=== PATIENT | female | born 1950 | race Caucasian/White ===

== ENCOUNTER 2018-02-18 03:31 | Inpatient (IN) | payer MEDICARE, OTHER ==
[~2018-02-18] VITALS: Ht 165.1 cm; Wt 100.7 kg
[2018-02-18] VITALS (24 sets, daily range): BP systolic 114–181; BP diastolic 49–122
[2018-02-18] MEDS ORDERED: CYMBALTA (03:36)
[2018-02-18] MEDS ORDERED: LYRICA 50 MG50 MG PO (03:58)
[2018-02-18] MEDS ORDERED: LORAZEPAM 0.50.5 M1 PO (03:58)
[2018-02-18] MEDS ORDERED: MIRAPEX1 MG PO (03:58)
[2018-02-18] MEDS ORDERED: PROTONIX40 M2 PO (03:59)
[2018-02-18] MEDS ORDERED: LEVEMIR100 UNIT/1 SUBQ (03:59)
[2018-02-18] MEDS ORDERED: CYMBALTA60 MG PO (03:59)
[2018-02-18] MEDS ORDERED: SINEMET 25-1001 EAC1 PO (04:00)
[2018-02-18] MEDS ORDERED: BACTRIM DS TAB1 EACH (04:00)
[2018-02-18] MEDS ORDERED: AMBIEN 5 MG TABL5 M1 PO (04:00)
[2018-02-18] MEDS ORDERED: NOVOLOG100 UNIT/1 SUBQ (04:01)
[2018-02-18 04:13] LABS: ABSOLUTE BASOPHILS 0.1 thou/uL (0.0-0.2); ABSOLUTE EOSINOPHILS 0.1 thou/uL (0.0-0.7); ABSOLUTE LYMPHOCYTES 3.7 thou/uL (0.8-5.3); ABSOLUTE MONOCYTES 0.9 thou/uL (0.0-1.2); BASOPHILS 1.1 %; EOSINOPHILS 1.2 %; HEMOGLOBIN 13.8 gm/dL (12.0-15.0); LYMPHOCYTES 31.2 %; MCH 29.8 pg (26.0-34.0); MCV 90.4 fL (80.0-100.0); MONOCYTES 7.7 %; MPV 8.2 fl. (7.2-11.1); NUCLEATED RBCS 0 /100WBC; PLATELET COUNT* 327 thou/uL (150-400); POLYS 58.8 %; RBC 4.64 mil/uL (4.20-5.00); RDW-CV 13.9 % (10.5-14.5)
[2018-02-18 04:18] LABS: ANION GAP 14 mmol/L (7-16); BUN 22 mg/dL (7-18); CALCIUM 9.2 mg/dL (8.5-10.1); CHLORIDE 95 mmol/L (98-107); CO2 22 mmol/L (21-32); CREATININE 1.2 mg/dL (0.6-1.3); GLUCOSE 444 mg/dL (70-99); POTASSIUM 4.3 mmol/L (3.5-5.1); SODIUM 131 mmol/L (136-145)
[2018-02-18 04:27] LABS: ALBUMIN 3.1 g/dL (3.4-5.0); ALKALINE PHOSPHATASE 86 U/L (46-116); LIPASE 204 U/L (73-393); NT-PRO BRAIN NAT PEPTIDE 108 pg/mL (<300); SGOT 28 U/L (15-37); SGPT 16 U/L (30-65); TOTAL BILIRUBIN 0.3 mg/dL (<0.1-1.0); TOTAL PROTEIN 8.1 g/dL (6.4-8.2); TROPONIN-I LEVEL <0.06 ng/mL (<0.06)
[2018-02-18 06:02] LABS: URINE BILIRUBIN NEGATIVE (Negative); URINE BLOOD NEGATIVE (Negative); URINE CLARITY CLEAR; URINE COLOR YELLOW; URINE GLUCOSE-RANDOM 3+ (Negative); URINE KETONES NEGATIVE (Negative); URINE LEUKOCYTES-REFLEX NEGATIVE (Negative); URINE NITRITE-REFLEX NEGATIVE (Negative); URINE PROTEIN NEGATIVE (Negative); URINE UROBILINOGEN 0.2 E.U./dl (0.2-1.0)
[2018-02-18] MEDS ORDERED: AMBIEN CR12.5 MG PO (06:57)
[2018-02-18 07:56] LABS: CHOLESTEROL 254 mg/dL (<200); HDL CHOLESTEROL 33 mg/dL (>40); TC:HDL 7.7 Ratio (Not establshd); TRIGLYCERIDE 623 mg/dL (<150); VLDL 125 mg/dL (<40)
[2018-02-18 08:10] LABS: LDL CHOLESTEROL ND mg/dL (<100); SERUM ASSESSMENT Slight Lipemia
--- NOTE | 2018-02-18 14:28 | EKG ---
[place] [address] ELECTROCARDIOGRAM REPORT Name: ABHI SHULTZ Room: [place] [address] ADM IN [facility].#: [id number] Admission: 02/18/18 Attend Phys: Annette Delvalle MD Discharge: Date of : 52 Report #: [id number] THIS REPORT FOR: //name// [facility] ED Test Date: 2018-02-18 Test Time: 03:36:46 Pat Name: ABHI SHULTZ Department: Room: [facility] Gender: F Java Websphere Developer: LETY : 1950 Requested By: Rosa William Order Number: [id number] MD: Jose A Corona Measurements Intervals [place] Rate: 103 P: 43 SC: 173 QRS: -10 QRSD: 85 T: 19 QT: 353 QTc: 462 Interpretive Statements Sinus tachycardia Probable left atrial enlargement Inferior infarct, old consider old anterior infarction Baseline wander in lead(s) I No previous ECG available for comparison Electronically Signed On 02-18-2018 14:28:10 SURFACE LOGGING SYSTEMS LOGGER by Jose A Corona [email or web address] <ELECTRONICALLY SIGNED> By: Jose A Corona MD, [facility] 02/18/18 1428 0336 0336 Jose A Corona MD, [facility] /EPI
--- NOTE | 2018-02-18 14:28 | EKG ---
[place] [address] ELECTROCARDIOGRAM REPORT Name: ABHI SHULTZ Room: [place] [address] ADM IN [facility].#: [id number] Admission: 02/18/18 Attend Phys: Annette Delvalle MD Discharge: Date of : 52 Report #: [id number] THIS REPORT FOR: //name// [facility] ED Test Date: 2018-02-18 Test Time: 05:09:13 Pat Name: ABHI SHULTZ Department: Room: [facility] Gender: F Film Composer: HAILEY : 1950 Requested By: Rosa William Order Number: [id number] MD: Jose A Corona Measurements Intervals [place] Rate: 95 P: 24 MN: 161 QRS: -14 QRSD: 93 T: 39 QT: 377 QTc: 474 Interpretive Statements Sinus rhythm Inferior infarct, old Anterior infarct, old Baseline wander in lead(s) V1 Electronically Signed On 02-18-2018 14:28:29 HAZMAT CDL DRIVER by Jose A Corona [email or web address] <ELECTRONICALLY SIGNED> By: Jose A Corona MD, [facility] 02/18/18 1428 0509 0509 Jose A Corona MD, [facility] /EPI
--- NOTE | 2018-02-18 18:15 | EKG ---
[place] [address] ELECTROCARDIOGRAM REPORT Name: ABHI SHULTZ Room: [place] [address] ADM IN .R.#: [id number] Admission: 02/18/18 Attend Phys: Annette Delvalle MD Discharge: Date of : 52 Report #: [id number] THIS REPORT FOR: //name// [facility] Test Date: 2018-02-18 Test Time: 16:37:30 Pat Name: ABHI SHULTZ Department: Room: [place] [address] Gender: F Project Construction Assistant Manager: : 1950 Requested By: Jose A Corona Order Number: [id number] Reading MD: Jose A Corona Measurements Intervals [place] Rate: 83 P: 25 DC: 181 QRS: 5 QRSD: 85 T: 107 QT: 393 QTc: 462 Interpretive Statements Sinus rhythm Anterior infarct, age indeterminate Compared to ECG 02/18/2018 05:09:13 t wave changes noted Electronically Signed On 02-18-2018 18:14:59 CREDIT PROCESSOR by Jose A Corona [email or web address] <ELECTRONICALLY SIGNED> By: Jose A Corona MD, [facility] 02/18/184 163 36 Jose A Corona MD, [facility] /EPI
[2018-02-19] VITALS: BP 112/67
[2018-02-19 02:08] LABS: GLYCOHEMOGLOBIN (HGB A1C) 11.5 % (4.8-5.6)
[2018-02-19 04:00] VITALS: BP 120/61
[2018-02-19 04:43] LABS: POC CA IONIZED 4.7 mg/dL (4.5-5.3); POC CREATININE 0.9 mg/dL (0.6-1.3); POC HEMOGLOBIN 14.6 g/dL (12.0-17.0); POC POTASSIUM 4.5 mmol/L (3.5-4.9)
[2018-02-19 04:55] LABS: HEMATOCRIT 37.3 % (37.0-47.0); HEMOGLOBIN 12.3 gm/dL (12.0-15.0); MCH 29.7 pg (26.0-34.0); MCV 89.9 fL (80.0-100.0); MPV 7.8 fl. (7.2-11.1); RBC 4.15 mil/uL (4.20-5.00); RDW-CV 14.1 % (10.5-14.5); WBC 7.3 thou/uL (4.0-11.0)
[2018-02-19 05:14] LABS: ALBUMIN 2.4 g/dL (3.4-5.0); CALCIUM 8.3 mg/dL (8.5-10.1); CREATININE 0.9 mg/dL (0.6-1.3); MAGNESIUM 1.7 mg/dL (1.8-2.4); POTASSIUM 4.3 mmol/L (3.5-5.1); TOTAL BILIRUBIN 0.2 mg/dL (<0.1-1.0); TOTAL PROTEIN 6.7 g/dL (6.4-8.2)
[2018-02-19 05:16] LABS: TROPONIN-I LEVEL 15.72 ng/mL (<0.06)
[2018-02-19 08:00] VITALS: BP 135/63
[2018-02-19 12:00] VITALS: BP 121/63
[2018-02-19 16:00] VITALS: BP 129/70
[2018-02-19 19:35] VITALS: BP 142/71
[2018-02-20] VITALS: BP 107/63
[2018-02-20 04:00] VITALS: BP 101/61
[2018-02-20 08:00] VITALS: BP 128/61
[2018-02-20 12:00] VITALS: BP 116/67
[2018-02-20 16:00] VITALS: BP 126/66
[2018-02-20 19:20] VITALS: BP 107/48
[2018-02-21] VITALS: BP 139/76
[2018-02-21 04:00] VITALS: BP 109/56
[2018-02-21 08:45] VITALS: BP 134/68
--- NOTE | 2018-02-21 11:35 | EKG ---
[place] [address] ELECTROCARDIOGRAM REPORT Name: ABHI SHULTZ Room: [address] ADM IN .R.#: [id number] Admission: 02/18/18 Attend Phys: Annette Delvalle MD Discharge: Date of : 52 Report #: [id number] THIS REPORT FOR: //name// [facility] Test Date: 2018-02-19 Test Time: 14:57:59 Pat Name: ABHI SHULTZ Department: Room: [facility] Gender: F Photography Instructor: : 1950 Requested By: Jose A Corona Order Number: [id number] Reading MD: Rigoberto Feliciano Measurements Intervals [place] Rate: 92 P: 18 MN: 182 QRS: 4 QRSD: 93 T: 98 QT: 361 QTc: 447 Interpretive Statements Sinus rhythm Low voltage, precordial leads Nonspecific T abnrm, anterolateral leads Compared to ECG 02/18/2018 16:37:30 Low QRS voltage now present Myocardial infarct finding no longer present Electronically Signed On 02-21-2018 11:34:47 SUPERVISOR SAWING AND ASSEMBLY by Rigoberto Feliciano [email or web address] <ELECTRONICALLY SIGNED> By: Rigoberto Feliciano MD, [facility]ACC 02/21/18 1134 1457 1457 Rigoberto Feliciano MD, FAC /EPI
[2018-02-21 12:00] VITALS: BP 133/72
[2018-02-21 16:00] VITALS: BP 132/67
[2018-02-21 19:20] VITALS: BP 132/69
[2018-02-22] VITALS: BP 119/54
[2018-02-22 05:11] VITALS: BP 113/52
[2018-02-22 08:50] VITALS: BP 135/76
[2018-02-22 11:51] LABS: CALCIUM 8.6 mg/dL (8.5-10.1); POTASSIUM 4.3 mmol/L (3.5-5.1)
[2018-02-22 12:00] VITALS: BP 122/67
[2018-02-22 16:00] VITALS: BP 137/66
[2018-02-22 19:30] VITALS: BP 124/73
[2018-02-23] VITALS (15 sets, daily range): BP systolic 101–160; BP diastolic 53–106
--- NOTE | 2018-02-23 12:06 | CARD ---
[address] [address] CARDIAC CATH REPORT Name: ABHI SHULTZ Room: [address] IN [facility]#: [id number] Admission: 02/18/18 Attend Phys: Annette Delvalle MD Discharge: Date of : 51 Report #: [id number] THIS REPORT FOR: //name// APPROVED REPORT Study performed: 02/18/2018 13:43:13 Patient Details Patient Status: In-Patient Room #: The patient is a 67 year-old female Event Personnel Jose A Corona Swahili Teacher, Jyoti Mata RN Brickmason Helper, [place] (Mikala) Adolfo Clay Tina RN Brickmason Helper, Magi Jacobs Monitor, Carolin Fuller Monitor, Apryl Levy RN pan puller Performed JADEN Place w/wo Plasty Single LAD [id number] , Left Heart Catheterization Indication Non-STEMI , Chest pain Risk Factors Hypertension, Diabetes Admission/Lab Medications/Medications given during procedure Glycoprotein IllbIlla Inhibitors, Heparin Unfract., Plavix PO 600 mg, Heparin IV 2000 units, Aggrastat IV 9.8 mcg per min, Heparin IV 4900 units Procedure Narrative The patient was brought electively to the Cardiac Catheterization Laboratory and was prepped and draped in a sterile manner. The right wrist was infiltrated with 2% Lidocaine subcutaneous anesthesia. A Slender [place] sheath was inserted into the right radial artery. Coronary angiography was performed using coronary diagnostic catheters. The right coronary system was accessed and visualized with a JR4 5fr catheter. The left coronary system was accessed and visualized with a JL 3.5 5fr catheter. The left ventricle was accessed and visualized with a Angled PIG 5Fr catheter. Left ventricular/Aortic Valve gradient assessed via catheter pullback. Left ventriculogram was performed in [place] [address] CARDIAC CATH REPORT Name: ABHI SHULTZ Room: [address] IN ..#: [id number] Admission: 02/18/18 Attend Phys: Annette Delvalle MD Discharge: Date of : 51 Report #: [id number] was deployed with a 6 Fr Vasc-Band Reg 24cm. The patient tolerated the procedure well and there were no complications associated with the procedure. There was no hematoma. Intraoperative Conscious Sedation Sedation start time: 1447 Case end Time: 1554 Fentanyl 50 mcg Fluoro Time: 11.3 minutes Dose: 2259.36 mGy Contrast Type and Amount: Visipaque 210 ml Coronary Angiography The patient's coronary anatomy is right dominant. Diagnostic Cath Left Main 50% distal stenosis LAD 50% ostial, 90% mid, and 100% distally occluded with thrombus Circumflex 70% ostial stenosis OM3 40% proximal stenosis Right Coronary 60% proximal stenosis Ramus 0% stenosis Left Ventriculography The left ventricular ejection fraction is estimated to be 45-50%. Left ventricular wall motion abnormalities are present. There is no mitral insufficiency. mild distal anteroapical hypokinesis Hemodynamics The aortic pressure is 106/64 mmHg with a mean of 83 mmHg. The left ventricular pressure is 127/20 mmHg with a mean of mmHg. The left ventricular end diastolic pressure is 25 mmHg. There was no gradient across the aortic valve upon pullback. Pullback from the left ventricle to the aorta revealed no gradient across the aortic valve. Because of tortuous aorta, glidewire was required to cross the aortic valve with diagnostic right catheter which was used to perform hand injection of left ventriculogram. PCI Technique Lesion Anticoagulation was achieved with Heparin. iv aggrastat given Percutaneous coronary intervention was performed on the mid left anterior descending artery segment---. The lesion stenosis prior to intervention was 90% with PROSPER 0 flow. A 6FR XB 3.5 100CM Guide Catheter was used to engage the lm ostium. A IG: [facility] 190[place] [address] CARDIAC CATH REPORT Name: ABHI SHULTZ Room: [address] IN ..#: [id number] Admission: 02/18/18 Attend Phys: Annette Delvalle MD Discharge: Date of : 51 Report #: [id number] Interventional Guidewire was used to cross the lesion. BALLOON DILATION A Balloon catheter Trek RX 2.5 X 8 was inserted and inflated up to 12.00atm for 6seconds. Repeat angiography revealed the following post-dilatation results: 80% stenosis. STENT DEPLOYMENT A drug-eluting stent Xience Etelvina 2.08N11yr was inserted and inflated up to 9atm for 12seconds. Repeat angiography revealed the following post-stent deployment results: 0% stenosis. Final angiography reveals 0 % stenosis with PROSPER 3 flow. STENT DEPLOYMENT A stent was inserted and inflated up to 7.00atm for 6seconds. PCI Technique Lesion 2 Percutaneous Coronary Intervention was performed on the distal left anterior descending artery segment. Percutaneous coronary intervention was performed on the distal left anterior descending artery segment. The lesion stenosis prior to intervention was 100% with PROSPER 0 flow. A xb3.5 Guide Catheter was used to engage the lm ostium. A bmw Interventional Guidewire was used to cross the lesion. Balloon Dilation A Balloon catheter 2.5 x 8 mm was inserted and inflated up to 8atm for 19seconds. Repeat angiography revealed the following post-dilatation results: 80% stenosis. Stent Deployment A drug-eluting stent Xience Etelvina 2.56R00cv was inserted and inflated up to 10.00atm for 7seconds. Repeat angiography revealed the following post-stent deployment results: 80% stenosis between the stents in the mid and distal lad. 2 additional stents were placed in the mid lad between the 2 initially placed stents which was required to cover the area between the mid and distal area of stenosis Final angiography reveals 0 % stenosis with PROSPER 3 flow. STENT DEPLOYMENT A drug-eluting stent Xience Etelvina 2.5X12mm was inserted and inflated up to 14.00atm for 27seconds. Additional Inflation: 12.00atm for 6seconds. [address] [address] CARDIAC CATH REPORT Name: ABHI SHULTZ Room: [address] IN [place]#: [id number] Admission: 02/18/18 Attend Phys: Annette Delvalle MD Discharge: Date of : 51 Report #: [id number] PCI Technique Lesion 3 Percutaneous Coronary Intervention was performed on the mid left anterior descending artery segment. Stent Deployment A drug-eluting stent Xience Etelvina 2.5X15mm was inserted and inflated up to 14atm for 27seconds. Additional Inflation: 11atm for 7seconds. Additional Inflation: 16atm for 13seconds. Conclusion 1. 50% distal left main stenosis 2. 70% ostial circumflex stenosis 3. 60% proximal rca stenosis 4. 50% ostial, 90% mid, and complete occlusion of the distal lad with thrombus 5. following placement of 4 drug eluting stents in the mid and distal lad, there was no residual stenosis 5. EF 45-50% Recommendations Cardiac Rehabilitation Referral Aggressive Medical Therapy Medications Administered Clopidogrel <ELECTRONICALLY SIGNED> By: Jose A Corona MD, FAC 02/23/18 1206 1206Damary Corona MD, FACC /INF
--- NOTE | 2018-02-23 13:08 | CON ---
[address] [address] CONSULTATION Name: ABHI SHULTZ Room: [address] IN .R.#: [id number] Admission: 02/18/18 Attend Phys: Annette Delvalle MD Discharge: Date of : 51 Report #: [id number] THIS REPORT FOR: //name// CC: MAGDALENO physician/PCP Annette Delvalle DATE OF SERVICE: 02/18/2018 TYPE OF REPORT: Cardiology consultation. HISTORY OF PRESENT ILLNESS: The patient is a 67-year-old white female diabetic who I was asked to see in the hospital today after she complained of chest pain. No old records are available. The patient and her are actually from [place], [place]. They were staying in a mobile home nearby. The patient is not very active because of neuropathy. She notes few weeks ago, she had a brief episode of chest pain. She went to bed last night, awakened at 3:00 this morning with a pressure in the chest, went into arms. She became diaphoretic and short of breath. It was a steady discomfort. Her brought her to the Emergency Room. She was admitted for further evaluation. She is noted to have an abnormal troponin. I was asked to see her for further evaluation and treatment. She denies a recent cough. The pain was worse with deep breath. She has had no blood in stool. She denied recent trauma to her chest. She does become short of breath with exertion and has noticed an irregular heartbeat, but no syncope. PAST MEDICAL HISTORY: She had previous tonsillectomy, hemicolectomy for colon cancer and had chemotherapy back in 1990. She has had previous cholecystectomy. She recently developed a sore on the bottom of her foot and has been going to the wound clinic in [place]. She has a history of diabetes, borderline hypertension and hyperlipidemia. MEDICATIONS: Consists of the Lyrica, Ativan, Mirapex, Cymbalta, Protonix, insulin, Sinemet and Ambien. ALLERGIES: She in the past cannot tolerate STATIN DRUGS, which made her muscles ache. FAMILY HISTORY: Her mother had COPD. SOCIAL HISTORY: She is . 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 No smoking or alcohol abuse. REVIEW OF SYSTEMS: She has had no history of stroke, had asthma in the past. No history of peptic ulcer disease. She has been told she had an enlarged liver in the past. No kidney disease. She has a history of anxiety disorder and saw [place] [address] CONSULTATION Name: ABHI SHULTZ Room: [address]#: [id number] Admission: 02/18/18 Attend Phys: Annette Delvalle MD Discharge: Date of : 51 Report #: [id number] PHYSICAL EXAMINATION: GENERAL: Revealed a middle-aged female lying in bed. She appeared in mild distress. VITAL SIGNS: She had a blood pressure of 120/70, pulse is 80 and she is afebrile. HEENT: She is anicteric. Conjunctivae pink. Mucous membranes moist. NECK: Veins nondistended. No carotid bruits. Neck supple. CHEST: Clear to auscultation. NECK: Supple. CARDIOVASCULAR: Regular rate without murmur. ABDOMEN: Soft and nontender. EXTREMITIES: Had no edema. Left dorsalis pedis pulse 2+, right cannot be palpated as her foot is in a boot. RADIOLOGICAL DATA: Her ECG shows a sinus rhythm, no ST or T-wave change. Workup in the Emergency Room, she had portable chest x-ray this morning that showed normal heart size and minimal atelectasis. CT scan of the chest done in the Emergency Room with contrast showed no aortic dissection. There was no pulmonary embolus. LABORATORY DATA: She had lab work: Sodium 131, creatinine 1.2 and glucose 444. Her initial troponin less than 0.06 and currently is 3.87. Cholesterol 254, triglycerides 623 and HDL 33. TSH 2.1. White blood cell count 12.0 and hemoglobin 13.8. Urinalysis negative for protein and negative for leukocytes. IMPRESSION AND RECOMMENDATIONS: 1. Ysq-BS-pigqepybb myocardial infarction. Recommend cardiac catheterization. 2. Diabetes. 3. Hypertension. 4. History of colon cancer. 5. History of neuropathy. 6. Chronic ulcer on her foot. 7. Hyperlipidemia. The patient cannot tolerate statin drugs. <ELECTRONICALLY SIGNED> By: Jose A Corona MD, FACC 02/23/18 1308 1412 2049Damary Corona MD, FACC /nt
--- NOTE | 2018-02-23 16:40 | EKG ---
[place] [address] ELECTROCARDIOGRAM REPORT Name: ABIH SHULTZ Room: [address] ADM IN M.R.#: [id number] Admission: 02/18/18 Attend Phys: Annette Delvalle MD Discharge: Date of : 51 Report #: [id number] THIS REPORT FOR: //name// [facility] Test Date: 2018-02-23 Test Time: 14:00:33 Pat Name: ABHI SHULTZ Department: Room: [address] Gender: F Marketing Sales Representative: ROCKY : 1950 Requested By: Savage Smith Order Number: [id number] Lucinda MD: Savage Smith Measurements Intervals [place] Rate: 74 P: 42 [place]: 183 QRS: 25 QRSD: 99 T: 60 QT: 435 QTc: 483 Interpretive Statements Sinus rhythm Multiple ventricular premature complexes Borderline low voltage, extremity leads Compared to ECG 02/19/2018 14:57:59 Ventricular premature complex(es) now present Electronically Signed On 02-23-2018 16:40:24 SENIOR SCIENCE CONSULTANT by Savage Smith [email or web address] <ELECTRONICALLY SIGNED> By: Savage Smith MD, FACC 02/23/18 1640 1400 1400 Savage Smith MD, [facility] /EPI
[2018-02-24] VITALS: BP 131/73; BP 132/64
[2018-02-24 04:00] VITALS: BP 112/61; BP 122/76
[2018-02-24 05:32] LABS: HEMATOCRIT 35.7 % (37.0-47.0); HEMOGLOBIN 11.8 gm/dL (12.0-15.0); MCH 29.9 pg (26.0-34.0); MCV 90.6 fL (80.0-100.0); MPV 7.8 fl. (7.2-11.1); RBC 3.93 mil/uL (4.20-5.00); RDW-CV 14.5 % (10.5-14.5); WBC 6.8 thou/uL (4.0-11.0)
[2018-02-24 05:59] LABS: ALBUMIN 2.4 g/dL (3.4-5.0); CALCIUM 8.6 mg/dL (8.5-10.1); POTASSIUM 4.3 mmol/L (3.5-5.1); TOTAL BILIRUBIN 0.2 mg/dL (<0.1-1.0); TOTAL PROTEIN 6.5 g/dL (6.4-8.2)
[2018-02-24 06:02] LABS: TROPONIN-I LEVEL 1.62 ng/mL (<0.06)
[2018-02-24 08:44] VITALS: BP 123/73
[2018-02-24 12:00] VITALS: BP 128/74
[2018-02-24 12:54] VITALS: BP 123/73
[2018-02-24] MEDS ORDERED: CARVEDILOL3.125 MG PO (14:02)
[2018-02-24] MEDS ORDERED: NITROGLYCERIN0.4 MG SUBLING (14:02)
[2018-02-24] MEDS ORDERED: EFFIENT10 MG PO (14:02)
[2018-02-24] MEDS ORDERED: GENTAMICIN OPHTHALMIC (14:04)
--- NOTE | 2018-02-24 14:41 | CARD ---
[address] [address] CARDIAC CATH REPORT Name: ABHI SHULTZ Room: [address] IN [facility]#: [id number] Admission: 02/18/18 Attend Phys: Annette Delvalle MD Discharge: 02/24/18 Date of : 51 Report #: [id number] THIS REPORT FOR: //name// APPROVED REPORT Study performed: 02/23/2018 10:44:25 Patient Details Patient Status: In-Patient Room #: 220 The patient is a 67 year-old female Event Personnel Savage Smith Agency Recruiter, Magi Jacobs Monitor, Pancho Loja Hintermaier, Elena RN Bulk Station Agent, Carolin Tucker Bulk Station Agent, Veda Rodríguez Bulk Station Agent Procedures Performed Art Access - L femoral artery* , Left Heart CatheterizationLeft Heart Cath w/or w/o Coronaries [id number] LHC , PTCA with StentingDES Place w/wo Plasty Single CIRC 384454 JADEN Place w/wo Plasty Single LM/ LAD 367013 Indication Unstable angina Risk Factors Hypercholesterolemia, Hypertension Previous Procedures/Diagnoses Previous PCI, Previous RI Admission/Lab Medications/Medications given during procedure Aspirin, Platelet Aff. Inhib., Angiomax bolus and infusion Procedure Narrative The patient was brought electively to the Cardiac Catheterization Laboratory and was prepped and draped in a sterile manner. The left femoral was infiltrated with 2% Lidocaine subcutaneous anesthesia. A [place] 6 FR sheath was inserted into the left femoral artery. Coronary angiography was performed using coronary diagnostic catheters. The left coronary system was accessed and visualized with a 6fr JL 4 catheter. The left ventricle was accessed and visualized with a PC: Pig 6fr catheter. Left ventricular/Aortic Valve gradient assessed via catheter pullback. Pre-demployment femoral angiogram was performed . Closure device was deployed with a 6 [place] [address] CARDIAC CATH REPORT Name: ABHI SHULTZ Room: [address]#: [id number] Admission: 02/18/18 Attend Phys: Annette Delvalle MD Discharge: 02/24/18 Date of : 51 Report #: [id number] 6Fr. The patient tolerated the procedure well and there were no complications associated with the procedure. There was no hematoma. Intraoperative Conscious Sedation Sedation start time: 11:15 Case end Time: 13:05 Fentanyl 100 mcg Versed 3 mg Fluoro Time: 34.3 minutes Dose: DAP 340749 cGycm2 4505. 57 mGy Contrast Type and Amount: Visipaque 435 ml Coronary Angiography The patient's coronary anatomy is right dominant. Diagnostic Cath Left Main 70% distal left vein coronary artery narrowing LAD 80% ostial/proximal LAD stenosis was with widely patent proximal mid and distal LAD stents Circumflex 90% ostial circumflex stenosis, this being a nondominant vessel Right Coronary Large dominant vessel with 50% mid vessel stenosis Left Ventriculography Left Ventriculography was not performed. Hemodynamics The aortic pressure is 127/62 mmHg with a mean of mmHg. The left ventricular pressure is 123/8 mmHg with a mean of mmHg. The left ventricular end diastolic pressure is 16 mmHg. There was no gradient across the aortic valve upon pullback. PCI Technique Lesion Anticoagulation was achieved with Angiomax. Percutaneous coronary intervention was performed on the left main/proximal left anterior descending artery segment. The lesion stenosis prior to intervention was 80% with PROSPER 3 flow. A 6F XB LAD 3.5 Guide Catheter was used to engage the LCA ostium. A IG: ProwaterFlex 180CM Interventional Guidewire was used to cross the lesion. BALLOON DILATION A Balloon catheter Trek RX 2.75 X 12 was inserted and inflated up to 14.00atm for 6seconds. Additional Inflation: 17.00atm for 5seconds. [place] [address] CARDIAC CATH REPORT Name: LEXIIABHI POTTS Miguel Room: [address]#: [id number] Admission: 02/18/18 Attend Phys: Annette Delvalle MD Discharge: 02/24/18 Date of : 51 Report #: [id number] STENT DEPLOYMENT A drug-eluting stent Xience Etelvina 2.86U39et was inserted and inflated up to 18.00atm for 11seconds. Additional Inflation: 20.00atm for 9seconds. POST STENT DEPLOYMENT BALLOON DILATION A Balloon catheter [place] Trek RX 3.0 X 12 was inserted and inflated up to 16.00atm for 10seconds. Additional Inflation: 20.00atm for 8seconds. Additional Inflation: 22.00atm for 9seconds. Final angiography reveals 10 % stenosis with PROSPER 3 flow. PCI Technique Lesion 3 Percutaneous Coronary Intervention was performed on the proximal circumflex artery segment. The lesion stenosis prior to intervention was 90% with PROSPER 3 flow. A 6F XB LAD 3.5 Guide Catheter was used to engage the LCA ostium. A IG: [employer] 190cm Interventional Guidewire was used to cross the lesion. Balloon Dilation A Balloon catheter Trek RX 2.75 X 8 was inserted and inflated up to 18.00atm for 13seconds. Stent Deployment A drug-eluting stent Xience Etelvina 2.75X8mm was inserted and inflated up to 16.00atm for 16seconds. Additional Inflation: 14.00atm for 7seconds. Final angiography reveals 10 % stenosis with PROSPER 3 flow. Comments The PCI was complex by virtue of an unprotected distal left main bifurcation lesion involving the takeoff of the circumflex and prominent LAD systems PCI Technique Lesion Percutaneous coronary intervention was performed on the proximal circumflex artery segment. BALLOON DILATION A Balloon catheter Trek RX 3.0 X 8 was inserted and inflated up to 16atm for 11seconds. Additional Inflation: 10atm for 7seconds. Additional Inflation: 12atm for 11seconds. 8 ROBERTO X 10 Seconds 18 ROBERTO X [address] [address] CARDIAC CATH REPORT Name: ABHI SHULTZ Room: [address] IN M.R.#: [id number] Admission: 02/18/18 Attend Phys: Annette Delvalle MD Discharge: 02/24/18 Date of : 51 Report #: [id number] Conclusion #1 severe coronary artery disease characterized by the following: A 70% distal left main coronary stenosis extending into an 80% ostial proximal LAD stenosis with widely patent proximal mid and distal LAD stents B prominent though nondominant circumflex with 90% ostial stenosis C large dominant right coronary artery with 50% mid vessel narrowing #2 mild elevation of left ventricular end-diastolic pressure at rest #3 successful percutaneous coronary intervention with deployment of drug-eluting stent extending from the distal left main to the ostial proximal LAD with 10% residual narrowing and PROSPER-3 flow to the distal vessel #4 successful percutaneous coronary intervention with deployment of drug-eluting stent at the site of 90% ostial circumflex stenosis with 10% residual narrowing and PROSPER-3 flow to the distal vessel Recommendations Cardiac Risk Reduction Program Aggressive Medical Therapy Medications Administered Aspirin (any) Prasugrel Diagnostic Cath Approved by: Savage Smith MD Date/Time: 02/24/2018 14:39:25 <ELECTRONICALLY SIGNED> By: Savage Smith MD, [facility] 02/24/18 1441 144 1441Savage Smith MD, FACC /INF
--- NOTE | 2018-02-24 15:30 | EKG ---
[place] [address] ELECTROCARDIOGRAM REPORT Name: ABHI SHULTZ Room: [address] M.R.#: [id number] Admission: 02/18/18 Attend Phys: Annette Delvalle MD Discharge: 02/24/18 Date of : 52 Report #: [id number] THIS REPORT FOR: //name// [facility] Test Date: 2018-02-24 Test Time: 08:08:58 Pat Name: ABHI SHULTZ Department: Room: [address] Gender: F Manager Career: : 1950 Requested By: Savage Smith Order Number: [id number] Lucinda MD: Yung Garrido Measurements Intervals [place] Rate: 82 P: 40 WI: 182 QRS: 27 QRSD: 91 T: 50 QT: 403 QTc: 471 Interpretive Statements Sinus rhythm Premature ventricular contractions Compared to ECG 02/23/2018 14:00:33 No significant changes Electronically Signed On 02-24-2018 15:29:43 DIRECT SUPPORT STAFF MEMBER by Yung Garrido [email or web address] <ELECTRONICALLY SIGNED> By: Yung Garrido MD, [facility] 02/24/18 1529 [id number] Yung Garrido MD, [facility] /EPI
== END 2018-02-24 14:35 | disposition home or self-care (01) | DRG 246 ==
LOC: M.ERS 03:31 → M.2W 05:25 → M.TBA-ER 05:25 → M.2W 06:21
PROVIDERS: Emergency Medicine; Internal Medicine; Internal Medicine Cardiovascular Disease; ADMIT Internal Medicine
PROC: 4A023N7 Measurement of Cardiac Sampling and Pressure, Left Heart, Percutaneous Approach (ICD-10-PCS; principal; 2018-02-18)
PROC: B2111ZZ Fluoroscopy of Multiple Coronary Arteries using Low Osmolar Contrast (ICD-10-PCS; principal; 2018-02-18)
PROC: B2151ZZ Fluoroscopy of Left Heart using Low Osmolar Contrast (ICD-10-PCS; principal; 2018-02-18)
PROC: 027037Z Dilation of Coronary Artery, One Artery with Four or More Drug-eluting Intraluminal Devices, Percutaneous Approach (ICD-10-PCS; principal; 2018-02-18)
PROC: 027135Z Dilation of Coronary Artery, Two Arteries with Two Drug-eluting Intraluminal Devices, Percutaneous Approach (ICD-10-PCS; 2018-02-23)
PROC: B2111ZZ Fluoroscopy of Multiple Coronary Arteries using Low Osmolar Contrast (ICD-10-PCS; 2018-02-23)
PROC: 4A023N7 Measurement of Cardiac Sampling and Pressure, Left Heart, Percutaneous Approach (ICD-10-PCS; 2018-02-23)
DX: I21.4 Non-ST elevation (NSTEMI) myocardial infarction (principal); L97.429 Non-pressure chronic ulcer of left heel and midfoot with unspecified severity; I25.110 Atherosclerotic heart disease of native coronary artery with unstable angina pectoris; F32.9 Major depressive disorder, single episode, unspecified; E78.5 Hyperlipidemia, unspecified; E11.40 Type 2 diabetes mellitus with diabetic neuropathy, unspecified; E11.621 Type 2 diabetes mellitus with foot ulcer; K21.9 Gastro-esophageal reflux disease without esophagitis; E66.9 Obesity, unspecified; N18.3 Chronic kidney disease, stage 3 (moderate); F41.1 Generalized anxiety disorder; E11.65 Type 2 diabetes mellitus with hyperglycemia; I70.0 Atherosclerosis of aorta; I12.9 Hypertensive chronic kidney disease with stage 1 through stage 4 chronic kidney disease, or unspecified chronic kidney disease; E11.22 Type 2 diabetes mellitus with diabetic chronic kidney disease; S05.02XA Injury of conjunctiva and corneal abrasion without foreign body, left eye, initial encounter; F41.0 Panic disorder [episodic paroxysmal anxiety]; X58.XXXA Exposure to other specified factors, initial encounter; Y93.89 Activity, other specified; Y92.89 Other specified places as the place of occurrence of the external cause; Y99.8 Other external cause status; Z68.36 Body mass index [BMI] 36.0-36.9, adult; Z85.038 Personal history of other malignant neoplasm of large intestine; Z92.21 Personal history of antineoplastic chemotherapy; Z90.49 Acquired absence of other specified parts of digestive tract; Z79.4 Long term (current) use of insulin; Z79.899 Other long term (current) drug therapy; Z88.8 Allergy status to other drugs, medicaments and biological substances; Z82.49 Family history of ischemic heart disease and other diseases of the circulatory system; Z28.21 Immunization not carried out because of patient refusal

== ENCOUNTER → 2018-09-21 | Outpatient (CLI) | payer MEDICARE, OTHER ==
[~2018-09-21] MED LIST: AMBIEN 5 MG TABL5 M1 PO; AMBIEN CR12.5 MG PO; BACTRIM DS TAB1 EACH; CARVEDILOL3.125 MG PO; CYMBALTA; CYMBALTA60 MG PO; EFFIENT10 MG PO; GENTAMICIN OPHTHALMIC; LEVEMIR100 UNIT/1 SUBQ; LORAZEPAM 0.50.5 M1 PO; LYRICA 50 MG50 MG PO; MIRAPEX1 MG PO; NITROGLYCERIN0.4 MG SUBLING; NOVOLOG100 UNIT/1 SUBQ; PROTONIX40 M2 PO; SINEMET 25-1001 EAC1 PO
--- NOTE | 2018-09-24 16:59 | NST ---
[place] [address] NUCLEAR STRESS TEST Name: ABHI SHULTZ Room: [facility]#: [id number] Admission: 09/21/18 Attend Phys: Miguel Burgess Discharge: Date of : 52 Date of Service: 09/24/18 1659 Report #: [id number] THIS REPORT FOR: //name// APPROVED REPORT Imaging Protocol: Rest Tc-99m/Stress Tc-99m 1 day Study performed: 09/21/2018 08:28:58 Indication: Chest pain, Increased Fatigue. Patient Location: Out-Patient Stress Tech: Camila Gamez Stress Nurse: Seema Mujica RN NM Tech:JENNIFER Hutton Ht: 5 ft 5 in Wt: 225 lbs BSA: 2.08 m2 BMI: 37.43 Medical History Medical History: Angina, CAD s/p VA, CAD s/p stent, , Diabetes, Fatigue, HTN, Hyperlipidemia, Obesity , Weakness. Medications: ASA 81 MG, CARVEDILOL, INSULIN, ZETIA, NITROSTAT, EFFIENT, XARELTO. Allergies: Statins. Cardiac Risk Factors: Age, DM, FHX of CAD, HTN, Hyperlipidemia, HX VA/PCI. Previous Cardiac Procedures: Myocardial infarction, PCI Pretest Chest Pain Characteristics: No chest pain Exercise History: Sedentary Physical Disabilities: S/P SURGERY ON FRACTURED ANKLE. Meds Held (24 hrs): Carvedilol, Nitrostat. Resting Data Rest SPECT myocardial perfusion imaging was performed in supine position 30 minutes following the intravenous injection of 11.3 mCi of Tc-99m Sestamibi. Time of rest injection: 0750 Date: 09/21/2018 The images were gated to evaluate regional wall motion and calculate left ventricular ejection fraction. Administration Route: IV Administration Site: Right Hand Pharmacologic Stress Pharmacologic stress test was performed by injecting Regadenoson 0.4 mg IV push over 10-15 seconds immediately followed by the intravenous injection of 33.5 mCi of Tc-99m [place] [address] NUCLEAR STRESS TEST Name: ABHI SHULTZ Room: [facility]#: [id number] Admission: 09/21/18 Attend Phys: Miguel Burgess Discharge: Date of : 52 Date of Service: 09/24/18 1659 Report #: [id number] Time of stress injection: 929 Date: 09/21/2018 Administration Route: IV Administration Site: Right Hand Gated Stress SPECT was performed 40 minutes after stress injection. The images were gated to evaluate regional wall motion and calculate left ventricular ejection fraction. Stress only was performed in the Supine position. Stress Test Details Stress Test: Pharmacologic stress testing performed using 0.4 mg of regadenoson per 5 mL given IV over 10 seconds. Reason for pharmacologic stress test: physical limitation, FRACTURED ANKLE.. HR Max Heart Rate (APMHR): 153 bpm Resting HR: 83 bpm Target HR (85% APMHR): 130 bpm Max HR Achieved: 92 bpm % of APMHR: 60 Recovery HR: 85 bpm HR response to stress: Normal HR response to stress BP Resting BP: 157/93 mmHg Max BP: 122/66 mmHg Recovery BP: 154/75 mmHg BP response to stress: Normal blood pressure response to stress. ECG Resting ECG: nsr Stress ECG: nsr ST Change: none Arrhythmia: none Recovery ECG: nsr Recovery ST Change: none Recovery Arrhythmia: none Clinical Reason for Termination: Completed protocol Stress Symptoms: Headache, Dyspnea, HEAVINESS IN CHEST, NECK ACHE. Exercise duration: 0 min 00 sec Exercise capacity: 1.00 METs Nurse Comments 68 YEAR OLD FEMALE PRESENTED IN WHEELCHAIR [place] [address] NUCLEAR STRESS TEST Name: ABHI SHULTZ Room: [facility]#: [id number] Admission: 09/21/18 Attend Phys: Miguel Burgess Discharge: Date of : 52 Date of Service: 09/24/18 1659 Report #: [id number] ANKLE S/P SURGERY. PATIENT TOLERATED SITTING LEXISCAN. RECOVERY UNREMARKABLE WITH PO CAFFEINE, EFFECTIVE. PATIENT ESCORTED VIA WHEELCHAIR BY STAFF TO NUCLEAR MEDICINE FOR IMAGES. PATIENT WAS STABLE WITH NO COMPLAINTS AT THAT TIME. Stress ECG Conclusion negative ecg portion Study Quality Study: Good Artifact: No artifact Study Data At rest, the left ventricular ejection fraction was 69%.. Post stress, the left ventricular ejection was 72%.. SSS: 6 SRS: 3 SDS: 3 Perfusion Review of rest data reveals normal perfusion, without perfusion defects.Imaging obtained following vasodilator stress demonstrate a similar, uniform uptake of tracer without defects. LVEDV is normal.No segental wall motion abnormality seen. Wall Motion normal all segments Nuclear Conclusion ECG Findings: negative for ischemia Clinical Findings: negative for ischemia Nuclear Findings: negative for ischemia Exercise Capacity: not assessed Left Ventricular Function: normal Risk Study: low Negative perfusion nuclear stress test for ischemia or infarct <Conclusion> negative ecg portion <ELECTRONICALLY SIGNED> By: Rigoberto Feliciano MD, FACC 09/24/18 1659 1659 [id number] Rigoberto Feliciano MD, FACC /INF
== END ==
LOC: M.NUC 07-20 17:08
DX: I25.10 Atherosclerotic heart disease of native coronary artery without angina pectoris (principal); I21.02 ST elevation (STEMI) myocardial infarction involving left anterior descending coronary artery; E11.9 Type 2 diabetes mellitus without complications; I10 Essential (primary) hypertension; E78.5 Hyperlipidemia, unspecified; E66.9 Obesity, unspecified; Z85.038 Personal history of other malignant neoplasm of large intestine; Z95.5 Presence of coronary angioplasty implant and graft; Z95.818 Presence of other cardiac implants and grafts; Z79.899 Other long term (current) drug therapy; Z79.4 Long term (current) use of insulin; Z79.82 Long term (current) use of aspirin